=== PATIENT | female | born 1965 ===

== ENCOUNTER → 2025-06-29 | Outpatient (CLI) | payer OTHER ==
[2025-06-29 16:56] LABS: Candida Group, PCR NOT DETECTED (NOT DETECT); Candida glabrata-krusei, PCR NOT DETECTED (NOT DETECT)
[2025-06-29 17:01] LABS: Bacterial Vaginosis PCR Positive (NEGATIVE)
[2025-06-29 17:29] LABS: Chlamydia Trachomatis Vaginal NOT DETECTED (NOT DETECT); Neisseria Gonorrhoea Vaginal NOT DETECTED (NOT DETECT)
[2025-07-01 13:26] LABS: HIV 1,2 COMBO ANTIGEN/ANTIBODY Negative (Negative)
[2025-07-02 05:20] LABS: HSV SUBTYPE SOURCE Swab
== END | disposition home or self-care (01) ==
LOC: LAB 14:48 → LAB SHORT 14:48
PROVIDERS: Nurse Practitioner Family
DX: Z11.3 Encounter for screening for infections with a predominantly sexual mode of transmission (principal)
CPT/HCPCS: 81515; 87389; 87491; 87529; 87591

== ENCOUNTER → 2025-06-29 | Outpatient (CLI) | payer OTHER | END | disposition home or self-care (01) | LOC: LAB SHORT 19:00 → LAB 19:00 | DX: Z11.3 Encounter for screening for infections with a predominantly sexual mode of transmission (principal) | CPT/HCPCS: 86592 ==